=== PATIENT | male | born 1990 | race Caucasian/White ===

== ENCOUNTER 2019-02-03 08:32 | Emergency (ER) | payer MEDICAID ==
[~2019-02-03] VITALS: Wt 80.0 kg
[2019-02-03 08:35] VITALS: BP 145/85; PULSE 66; RESP 18
[2019-02-03] MEDS ORDERED: BELLADONNA/PHENOBARBITAL TAB PO STA (09:03)
[2019-02-03] MEDS ORDERED: LIDOCAINE/MYLANTA 40 ML BTL PO STA (09:03)
[2019-02-03] MEDS ORDERED: FAMO-96 PO (10:01)
[2019-02-03] MEDS ORDERED: HYDR-4011 PO (10:01)
--- NOTE | 2019-02-03 11:19 | ERD ---
ER Documentation Chief Complaint Chief Complaint epigastric pain radiating to back for 3 days. no n/v. no diarrhea. HPI 28-year-old male presenting with epigastric pain. Patient states his pain is radiating to his back over the last 3 days. Denies any chest pain or shortness of breath. Denies vomiting. Has not taken medications for symptoms. Denies change in urination or bowel movement. Pain comes and goes and he does not know what causes it. Denies medical problems. NKDA. Surgical history denies. Up-to-date on vaccinations. Social history smokes 1 to 2 cigarettes a day. ROS All systems reviewed and are negative except as per history of present illness. Medications Home Meds Active Scripts Hydrocodone/Acetaminophen ([place] 5-325 Tablet) 1 Each Tablet, 1 TAB PO Q6H PRN for PAIN, #7 TAB Prov:UTE WHEAT PA-C 02/03/19 Famotidine* (Pepcid*) 20 Mg Tablet, 20 MG PO BID for 4 Days, #30 TAB Prov:UTE WHEAT PA-C 02/03/19 Allergies Allergies: Coded Allergies: No Known Allergy (Unverified , 02/03/19) PMhx/Soc Medical and Surgical Hx: pt denies Medical Hx, pt denies Surgical Hx History of Surgery: No Anesthesia Reaction: No Hx Neurological Disorder: No Hx Respiratory Disorders: No Hx Cardiac Disorders: No Hx Psychiatric Problems: No Hx Miscellaneous Medical Probl: No Hx Alcohol Use: No Hx Substance Use: No Hx Tobacco Use: Yes Smoking Status: Current some day smoker FmHx Family History: No diabetes, No coronary disease, No other Physical Exam Vitals Vital Signs Date Temp Pulse Resp B/P (MAP) Pulse Ox O2 O2 Flow FiO2 Time Delivery Rate 02/03/19 97.6 66 18 145/85 99 08:35 (105) Physical Exam GENERAL: The patient is well-appearing, well-nourished, in no acute distress HEENT: Atraumatic. Conjunctivae are pink. Pupils equal, round, and reactive to light. There is no scleral icterus. Tympanic membranes clear bilaterally. Oropharynx clear. NECK: C-spine is soft and supple. There is no meningismus. There is no cervical lymphadenopathy. CHEST: Clear to auscultation bilaterally. There are no rales, wheezes or rhonchi. HEART: Regular rate and rhythm. No murmurs, clicks, rubs or gallops. ABDOMEN: Normal active bowel sounds. Mild tenderness palpation the epigastric region with no rebound tenderness. No distention. good bowel sounds. No rebound or guarding. No gross peritonitis. No gross organomegaly or masses. BACK: No midline or flank tenderness. Result Diagram: 02/03/1991102/03/19911 Results 24 hrs Laboratory Tests Test 02/03/19 09:05 02/03/19 09:12 Urine Color BOWEN Urine Clarity TURBID Urine pH 8.0 Urine Specific [place] 1.015 Urine Ketones NEGATIVE mg/dL Urine Nitrite NEGATIVE mg/dL Urine Bilirubin NEGATIVE mg/dL Urine Urobilinogen NEGATIVE mg/dL Urine Leukocyte Esterase NEGATIVE Iron/ul Urine Microscopic RBC 3 /HPF Urine Microscopic WBC 0 /HPF Urine Amorphous Crystals MODERATE /HPF Urine Hemoglobin NEGATIVE mg/dL Urine Glucose 3+ mg/dL Urine Total Protein NEGATIVE mg/dl White Blood Count 5.7 10^3/ul Red Blood Count 5.29 10^6/ul Hemoglobin 16.4 g/dl Hematocrit 46.4 % Mean Corpuscular Volume 87.7 fl Mean Corpuscular Hemoglobin 31.0 pg Mean Corpuscular Hemoglobin Concent 35.3 g/dl Red Cell Distribution Width 11.6 % Platelet Count 264 10^3/UL Mean Platelet Volume 9.6 fl Immature Granulocytes % 0.400 % Neutrophils % 58.5 % Lymphocytes % 31.9 % Monocytes % 6.3 % Eosinophils % 1.8 % Basophils % 1.1 % Nucleated Red Blood Cells % 0.0 /100WBC Immature Granulocytes # 0.020 10^3/ul Neutrophils # 3.4 10^3/ul Lymphocytes # 1.8 10^3/ul Monocytes # 0.4 10^3/ul Eosinophils # 0.1 10^3/ul Basophils # 0.1 10^3/ul Nucleated Red Blood Cells # 0.0 10^3/ul Sodium Level 140 mmol/L Potassium Level 3.9 mmol/L Chloride Level 104 mmol/L Carbon Dioxide Level 31 mmol/L Anion Gap 5 Blood Urea Nitrogen 10 mg/dl Creatinine 0.77 mg/dl Est Glomerular Filtrat Rate mL/min > 60 mL/min Glucose Level 123 mg/dl Calcium Level 9.3 mg/dl Total Bilirubin 0.6 mg/dl Direct Bilirubin 0.00 mg/dl Indirect Bilirubin 0.6 mg/dl Aspartate Amino Transf (AST/SGOT) 39 IU/L Alanine Aminotransferase (ALT/SGPT) 56 IU/L Alkaline Phosphatase 83 IU/L Total Protein 7.0 g/dl Albumin 4.3 g/dl Globulin 2.70 g/dl Albumin/Globulin Ratio 1.59 Lipase 43 U/L Current Medications Medications Dose Sig/Fili Start Time Status Last (Trade) Ordered Route PRN Stop Time Admin Dose Reason Admin 40 ml ONCE STAT 02/03/19 DC 02/03/19 Miscellaneous PO 09:03 09:08 Medication 02/03/19 09:04 (Gi Cocktail (2)) Belladonna/ 2 tab ONCE STAT 02/03/19 DC 02/03/19 Phenobarbital PO 09:03 09:08 () 02/03/19 09:04 Procedures/MDM DIAGNOSTIC IMAGING REPORT Patient: EMILE MARQUEZ : 1990 Age: 28 Sex: M MR #: [id number] DOS: 02/03/1903 Ordering MD: TIO WHEAT PA-C Location: [facility] Room/Bed: PROCEDURE: US Abdomen. CLINICAL INDICATION: Abdominal Pain TECHNIQUE: Multiple real-time images were acquired of the patient's abdomen and retroperitoneum utilizing a high resolution transducer. COMPARISON: None FINDINGS: The liver is of normal size, contour and echogenicity with no mass or intrahepatic ductal dilatation. Portal and hepatic vein are patent on color flow Doppler imaging. The common bile duct measures 1.9 millimeter in transverse diameter.No gallstones are identified. Gallbladder wall is not thickened and no abnormal pericholecystic fluid collection is seen. No sonographic Greer's sign was elicited during this exam. There is no ascites. The pancreas is normal with no mass or ductal dilatation. The right kidney measures 10.1 cm in length. No hydronephrosis, calculus or mass is present.. There is no evidence of abdominal aortic aneurysm or caval thrombosis. IMPRESSION: No evidence of cholelithiasis, cholecystitis or biliary obstruction. ER Course: 28 yr old male presents with epigastric pain. Patient ultrasound blood work is within normal limits. Patient likely has GERD. Patient is disc harged with strict ER precautions. Patient is told if symptoms change or worsen to return the ER. I do not feel that CT scan is indicated. I have low suspicion for pulmonary or cardiac emergency. Patient is not complaining of chest pain. Patient is told symptoms change or worsen to return immediately to the ER. All questions answered at discharge Departure Diagnosis: Primary Impression: Epigastric pain Condition: Stable Patient Instructions: Epigastric Pain (Uncertain Cause) Referrals: [facility] YOU HAVE RECEIVED A MEDICAL SCREENING EXAM AND THE RESULTS INDICATE THAT YOU DO NOT HAVE A CONDITION THAT REQUIRES URGENT TREATMENT IN THE EMERGENCY DEPARTMENT. FURTHER EVALUATION AND TREATMENT OF YOUR CONDITION CAN WAIT UNTIL YOU ARE SEEN IN YOUR DOCTORS OFFICE WITHIN THE NEXT 1-2 DAYS. IT IS YOUR RESPONSIBILITY TO MAKE AN APPOINTMENT FOR FOLOW-UP CARE. IF YOU HAVE A PRIMARY DOCTOR --you should call your primary doctor and schedule an appointment IF YOU DO NOT HAVE A PRIMARY DOCTOR YOU CAN CALL OUR PHYSICIAN REFERRAL HOTLINE AT IF YOU CAN NOT AFFORD TO SEE A PHYSICIAN YOU CAN CHOSE FROM THE FOLLOWING [facility] [address] [facility] [address] [facility] [address] [facility] [address] [facility] [address] [facility] [facility]. [address] Additional Instructions: FOLLOW UP WITH YOUR PRIMARY CARE PHYSICIAN TOMORROW.Return to this facility if you are not improving as expected. UTE WHEAT PA-C February 03, 2019 11:19
== END 2019-02-03 10:07 | disposition home or self-care (01) ==
LOC: FTE 08:32
DX: R10.13 Epigastric pain (principal); F17.210 Nicotine dependence, cigarettes, uncomplicated
CPT/HCPCS: 36415; 76705; 80053; 81001; 83690; 85025; Z7502; Z7610

== ENCOUNTER 2019-02-04 21:26 | Emergency (ER) | payer MEDICAID ==
[~2019-02-04] VITALS: Wt 91.1 kg
[~2019-02-04 21:26] MED LIST: FAMO-96 PO; HYDR-4011 PO
[2019-02-04] MEDS ORDERED: ONDANSETRON (ODT) 4 MG TAB ODT STA (23:25)
--- NOTE | 2019-02-04 23:29 | ERD ---
ER Documentation Chief Complaint Chief Complaint feeling light headed and headache x 3 days; neuro intact HPI 28-year-old male, presents to the emergency department, complaining of dizziness nausea after taking Frederick for 3 days for abdominal pain. The patient also reports constipation for 3 days but denies abdominal pain, no nausea or vomiting, no fever or chills. ROS All systems reviewed and are negative except as per history of present illness. Medications Home Meds Active Scripts Ondansetron Hcl* (Zofran*) 4 Mg Tablet, 4 MG PO Q8H PRN for NAUSEA AND/OR VOMITING, #15 TAB Prov:VALENTINO LÓPEZ MD 02/05/19 Hydrocodone/Acetaminophen ([place] 5-325 Tablet) 1 Each Tablet, 1 TAB PO Q6H PRN for PAIN, #7 TAB Prov:UTE WHEAT PA-C 02/03/19 Famotidine* (Pepcid*) 20 Mg Tablet, 20 MG PO BID for 4 Days, #30 TAB Prov:UTE WHEAT PA-C 02/03/19 Allergies Allergies: Coded Allergies: No Known Allergy (Unverified , 02/03/19) PMhx/Soc Medical and Surgical Hx: pt denies Medical Hx, pt denies Surgical Hx History of Surgery: No Anesthesia Reaction: No Hx Neurological Disorder: No Hx Respiratory Disorders: No Hx Cardiac Disorders: No Hx Psychiatric Problems: No Hx Miscellaneous Medical Probl: No Hx Alcohol Use: No Hx Substance Use: No Hx Tobacco Use: Yes Smoking Status: Never smoker FmHx Family History: No diabetes, No coronary disease Physical Exam Vitals Vital Signs Date Temp Pulse Resp B/P (MAP) Pulse Ox O2 O2 Flow FiO2 Time Delivery Rate 02/04/19 97.8 72 20 168/72 100 22:27 (104) Physical Exam Const: No acute distress Head: Atraumatic Eyes: Normal Conjunctiva ENT: Normal External Ears, Nose and Mouth. Neck: Full range of motion. No meningismus. Resp: Clear to auscultation bilaterally Cardio: Regular rate and rhythm, no murmurs Abd: Soft, non tender, non distended. Normal bowel sounds Skin: No petechiae or rashes Back: No midline or flank tenderness Ext: No cyanosis, or edema Neur: Awake and alert Psych: Normal Mood and Affect Results 24 hrs Current Medications Medications Dose Sig/Fili Start Time Status Last (Trade) Ordered Route PRN Stop Time Admin Dose Reason Admin Ondansetron 8 mg ONCE STAT 02/04/19 DC 02/04/19 HCl (Zofran ODT 23:25 23:38 Odt) 02/04/19 23:29 Procedures/MDM Vital signs stable, neurovascular exam intact. Differential diagnosis include but not limited to dehydration, cardiac arrhythmia, , Mnire's disease , vestibular neuronitis, migraine, vertigo, side effects of the medications, hypoglycemia. Less likely but is still a possibility, intracranial hemorrhage, ischemic stroke, DRUPAL ARCHITECT neoplasm. Physical examination and clinical presentation consistent most likely with side effects of Frederick. During the ED course the patient remained stable, no new complaints. Results and clinical impression discussed with patient who agrees with management. The patient is stable to be treated outpatient and will be discharged home with instructions to follow up with the primary care provider in the next 48h. If symptoms persist, worsen or new symptoms develop, then patient should return to the ED immediately. Instructions explained and given directly by me to the patient with ac knowledgment and demonstrated understanding. Disclaimer: Inadvertent spelling and grammatical errors are likely due to EHR/dictation software use and do not reflect on the overall quality of patient care. Also, please note that the electronic time recorded on this note does not necessarily reflect the actual time of the patient encounter. Departure Diagnosis: Primary Impression: Side effect of medication Condition: Stable Additional Instructions: Muchas celso por [facility] para matos servicio. Esperamos que en matos visita a la steve de emergencia matos problema medico haya sido solucionado y que se sienta mucho mejor. Para estar seguros que matos mejoria sigue en proceso, le pedimos el favor de hacer rei fredrick de seguimiento medico con matos doctor primario en los proximos 2-4 pimentel. Lleve con usted estos documentos y las medicinas recetadas. Si april sintomas empeoran, NO SE ESPERE, por favor regrese a steve de emergencia INMEDIATAMENTE. En clive que usted no tenga un mdico de atencin primaria: Llame al mdico o clnica comunitaria de referencia que aparece abajo latasha las horas de consultorio para hacer rei fredrick para que le vean. CLINICAS: [facility] [phone] [address] [facility] [phone] [address] [facility] [phone] [address] [place] [phone] [place] [address] [phone] [facility] [phone] VALENTINO DAIGLE MD February 04, 2019 23:29
[2019-02-05] MEDS ORDERED: ONDA4TAB8 PO (00:26)
[2019-02-05 00:40] VITALS: BP 119/71; PULSE 56; RESP 20
== END 2019-02-05 00:47 | disposition home or self-care (01) ==
LOC: FTE 21:26
DX: R42 Dizziness and giddiness (principal); R11.0 Nausea; Z87.891 Personal history of nicotine dependence
CPT/HCPCS: Z7502; Z7610; 99283